=== PATIENT | female | born 1995 | race Caucasian/White ===

== ENCOUNTER 2017-12-10 19:06 | Emergency (ER) | payer OTHER, MEDICAID ==
[2017-12-10] MEDS ORDERED: Ondansetron ODT TAB* 4 MG PO ONE ×2 (19:20→21:27)
--- NOTE | 2017-12-10 19:20 | ED ---
Complex/Multi-Sys Presentation - HPI Summary HPI Summary: This is scribe Ed Holli documenting for attending Roman Tubbs MD. 25 y/o female BIBA c/o intermittent N/V starting at 17:00 lasting to around 18: 30. Pt states the vomiting became almost continuous and produced bile. Pt also c /o ABD pain aggravated when she vomited. Pt is still slightly nauseous. Associated sx: CHEN in the back diffusely. I, Dr. Tubbs, personally performed the services described in this documentation as scribed in my presence and it is both accurate and complete. - History Of Current Complaint Chief Complaint: EDNauseaVomitDiarrh Time Seen by Provider: 12/10/17 19:15 Hx Obtained From: Patient Onset/Duration: Lasting Hours, Resolved Timing: Intermittent, Lasting: Associated Signs And Symptoms: Positive: Headache, Nausea, Vomiting, Abdominal Pain - Allergies/Home Medications Allergies/Adverse Reactions: Allergies Allergy/AdvReac Type Severity Reaction Status Date / Time No Known Allergies Allergy Unverified 12/10/17 19:14 PMH/Surg Hx/FS Hx/Imm Hx Previously Healthy: No Endocrine/Hematology History: Reports: Hx Anemia - TAKING IRON Denies: Hx Diabetes, Hx Thyroid Disease Cardiovascular History: Reports: Other Cardiovascular Problems/Disorders - SLIGHTLY TACHYCARDIA-NORMAL PULSE 100 Denies: Hx Hypercholesterolemia, Hx Hypertension, Hx Peripheral Vascular Disease Respiratory History: Denies: Hx Asthma, Hx Chronic Obstructive Pulmonary Disease (COPD), Other Respiratory Problems/Disorders GI History: Reports: Hx Irritable Bowel Denies: Hx Ulcer, Other GI Disorders - chronic constipation Musculoskeletal History: Reports: Hx Tendonitis - ANKLES Denies: Hx Arthritis, Hx Osteoporosis Sensory History: Denies: Hx Cataracts, Hx Contacts or Glasses, Hx Glaucoma, Hx Hearing Aid Opthamlomology History: Denies: Hx Cataracts, Hx Contacts or Glasses, Hx Glaucoma Neurological History: Reports: Other Neuro Impairments/Disorders - cp Denies: Hx Headaches, Hx Seizures, Hx Transient Ischemic Attacks (TIA) Psychiatric History: Reports: Hx Anxiety - CONTROLLED WITH MED, Hx Depression - CONTROLLED WITH MED - Surgical History Surgery Procedure, Year, and Place: baclofen Pump replacements in 1999, replaced 2006. muscle surgery in 2000-hamstring and gastric. ankle fusion and foot surgery 2011. osteotomies Hx Anesthesia Reactions: No Infectious Disease History: No Infectious Disease History: Denies: Hx Clostridium Difficile, Hx Hepatitis, Hx Human Immunodeficiency Virus (HIV), Hx of Known/Suspected MRSA, Hx Shingles, Hx Tuberculosis, Hx Known/ Suspected VRE, Hx Known/Suspected VRSA, History Other Infectious Disease, Traveled Outside the [place] in Last 30 Days - Family History Known Family History: Positive: Unknown - Social History Alcohol Use: None Substance Use Type: Reports: None Smoking Status (MU): Never Smoked Tobacco Review of Systems Constitutional: Negative Eyes: Negative ENT: Negative Cardiovascular: Negative Respiratory: Negative Positive: Abdominal Pain, Vomiting, Nausea Genitourinary: Negative Musculoskeletal: Negative Skin: Negative Positive: Headache Psychological: Normal All Other Systems Reviewed And Are Negative: Yes Physical Exam - Summary Physical Exam Summary: Appearance: The patient is well-nourished in no acute distress and in no acute pain. Skin: The skin is warm and dry and skin color reflects adequate perfusion. HEENT: The head is normocephalic and atraumatic. The pupils are equal and reactive. The conjunctivae are clear and without drainage. Nares are patent and without drainage. Mouth reveals moist mucous membranes and the throat is without erythema and exudate. The external ears are intact. The ear canals are patent and without drainage. The tympanic membranes are intact. Neck: The neck is supple with full range of motion and non-tender. There are no carotid bruits. There is no neck vein distension. Respiratory: Chest is non-tender. Lungs are clear to auscultation and breath sounds are symmetrical and equal. Cardiovascular: Heart is regular rate and rhythm. There is no murmur or rub auscultated. There is no peripheral edema and pulses are symmetrical and equal. Abdomen: The abdomen is soft and non-tender. There are normal bowel sounds heard in all four quadrants and there is no organomegaly palpated. Musculoskeletal: There is no back tenderness noted. Extremities are non-tender with full range of motion. There is good capillary refill. There is no peripheral edema or calf tenderness elicited. Neurological: Patient is alert and oriented to person, place and time. The patient has symmetrical motor strength in all four extremities. Cranial nerves are grossly intact. Deep tendon reflexes are symmetrical and equal in all four extremities. Psychiatric: The patient has an appropriate affect and does not exhibit any anxiety or depression. Triage Information Reviewed: Yes Vital Signs On Initial Exam: Initial Vitals Temp Pulse Resp BP Pulse Ox 97.1 F 114 20 123/88 100 12/10/17 19:11 12/10/17 19:11 12/10/17 19:11 12/10/17 19:11 12/10/17 19:11 Vital Signs Reviewed: Yes Diagnostics - Vital Signs Vital Signs Temp Pulse Resp BP Pulse Ox 12/10/17 19:11 97.1 F 114 20 123/88 100 - Laboratory Lab Statement: Any lab studies that have been ordered have been reviewed, and results considered in the medical decision making process. Re-Evaluation - Re-Evaluation 1 Re-Evaluation Time: 21:25 Change: Improved Comment: Reassess pt; pt is feeling better with PO intake Complex Multi-Symp Course/Dx Course Of Treatment: Ms. Phillips presented to the emergency department with multiple episodes of vomiting without abdominal pain or diarrhea. She attributed to something she had just eaten. She was feeling a bit better when she arrived although still nauseated and was given by mouth Zofran. She improved and was able to take food and drink and discharged in stable condition. - Diagnoses Provider Diagnoses: Vomiting Discharge - Sign-Out/Discharge Documenting (check all that apply): Patient Departure - Discharge Plan Condition: Stable Disposition: HOME Patient Education Materials: Acute Nausea and Vomiting (ED) Referrals: Shekhar Hart MD [Primary Care Provider] - 4 Days (PLEASE F/U IN 3-5 DAYs) Additional Instructions: PLEASE RETURN TO THE ED FOR WORSENING OR RETURNING SYMPTOMS - Billing Disposition and Condition Condition: STABLE Disposition: Home
[2017-12-10 21:53] VITALS: BP 135/95
[2017-12-10] MEDS ORDERED: Ondansetron ODT TAB* 4 MG ONE (22:19)
== END 2017-12-10 21:52 | disposition home or self-care (01) ==
LOC: ED 19:06
DX: R11.10 Vomiting, unspecified (principal); D64.9 Anemia, unspecified
CPT/HCPCS: 99283; A9270-GY

== ENCOUNTER 2017-12-18 20:17 | Emergency (ER) | payer OTHER, MEDICAID ==
[2017-12-18 20:45] VITALS: BP 116/71
[2017-12-18] MEDS ORDERED: Sulfamethox/Trimethoprim DS 800/160* TAB PO ONE (21:48)
[2017-12-18] MEDS ORDERED: Phenazopyridine TAB* 100 MG PO ONE (21:49)
--- NOTE | 2017-12-18 21:54 | UC ---
Complaint Female HPI - HPI Summary HPI Summary: 22 yo female c/o dysuria, hesitation with urination, bladder discomfort progressively worse for the last couple days. Took an over the counter urine infection test - it was positive. no fever / chills, but feels as little unwell. Possibly concomitant vaginal yeast infection, used over the counter cream, but didn't really help. No current gi sx; however, last week was seen in ED for acute n/v d/t food poisoning. These sx resolved. No Diarrhea. No rash. Hx uti's in the past; this feels just like a uti. Is sexually active but not recently. - History Of Current Complaint Chief Complaint: UCGU Stated Complaint: UTI Time Seen by Provider: 12/18/17 21:36 Hx Obtained From: Patient Hx Last Menstrual Period: [id number] Pain Intensity: 5 - Allergies/Home Medications Allergies/Adverse Reactions: Allergies Allergy/AdvReac Type Severity Reaction Status Date / Time No Known Allergies Allergy Unverified 12/18/17 20:46 Home Medications: Home Medications Ibuprofen TAB* [Advil TAB*] 200 mg PO Q6H PRN 12/18/17 [History Confirmed ] Linaclotide (NF) [Linzess (NF)] 290 mcg PO DAILY 12/18/17 [History Confirmed ] Mirabegron (NF) [Myrbetriq (NF)] 25 mg PO DAILY 12/18/17 [History Confirmed ] Omeprazole CAP* [Prilosec CAP* 20 MG] 40 mg PO DAILY 12/18/17 [History Confirmed 12/18/17] PMH/Surg Hx/FS Hx/Imm Hx Previously Healthy: Yes - see hpi / pmh - Surgical History Surgical History: Yes Surgery Procedure, Year, and Place: baclofen Pump replacements in 1999, replaced 2006. muscle surgery in 2000-hamstring and gastric. ankle fusion and foot surgery 2011. osteotomies - Family History Known Family History: Positive: Unknown - Social History Alcohol Use: Rare Substance Use Type: None Smoking Status (MU): Never Smoked Tobacco - Immunization History Most Recent Influenza Vaccination: fall 2012 Most Recent Tetanus Shot: within last 10 yrs Most Recent Pneumonia Vaccination: never recieved Review of Systems Constitutional: Negative Skin: Negative Eyes: Negative ENT: Negative Respiratory: Negative Cardiovascular: Negative Gastrointestinal: Other - see hpi Genitourinary: Other - see hpi Motor: Other - no new change Neurovascular: Other - no new change Musculoskeletal: Other: - no new change Neurological: Other - no new change Psychological: Negative Is Patient Immunocompromised?: No All Other Systems Reviewed And Are Negative: Yes Physical Exam Triage Information Reviewed: Yes Appearance: Well-Appearing, Well-Nourished Vital Signs: Initial Vital Signs Temp 98.2 F 12/18/17 20:39 Pulse 97 12/18/17 20:39 Resp 14 12/18/17 20:39 BP 116/71 12/18/17 20:39 Pulse Ox 100 12/18/17 20:39 Vital Signs Reviewed: Yes Eye Exam: Normal - grossly normal ENT Exam: Normal - mmm. grossly normal. Neck exam: Normal Neck: Positive: Supple Respiratory Exam: Normal Respiratory: Positive: Chest non-tender, Lungs clear, Normal breath sounds, No respiratory distress Cardiovascular Exam: Normal Cardiovascular: Positive: RRR Abdominal Exam: Other - soft, nondistended. No cvat. + subj tender over bladder. No r/g. Musculoskeletal Exam: Other - in wheelchair. Neurological Exam: Other - full neurologic exam not performed. No report of worse or new issues. Psychological Exam: Normal - conversing easily and appropriately. Complaint Female Dx - Course Course Of Treatment: Reviewed urine dip with Emily. Patel. S/sx c/w recent uti, will send cx. Will start abx, she will call pcp on Thursday to arrange f/u. Will seek medical attention for worse or new problems. Aware of the importance of close f/u pcp. Questions as posed answered to the best of my ability. Seems pleased with coa / tx plan. - Differential Dx/Diagnosis Provider Diagnoses: Dysuria. Possible uti Discharge - Sign-Out/Discharge Documenting (check all that apply): Patient Departure - Discharge Plan Condition: Stable Disposition: HOME Prescriptions: Fluconazole [Diflucan 150 MG (NF)] 150 mg PO DAILY #2 tab Sulfamethox/Trimethoprim DS* [Bactrim DS 800/160 TAB*] 1 tab PO BID #13 tab Patient Education Materials: Urinary Tract Infection in Women (ED), Yeast Infection (ED) Referrals: Shekhar Hart MD [Primary Care Provider] - Additional Instructions: Your symptoms are consistent with a urinary tract infection. Urine culture has been sent. Please call your doctor on Thursday to schedule a follow up appointment for this week. - Billing Disposition and Condition Condition: STABLE Disposition: Home
== END 2017-12-18 22:15 | disposition home or self-care (01) ==
LOC: UCEAST 20:17
DX: R30.0 Dysuria (principal)
CPT/HCPCS: 81003; 84702; 87086; 99212; A9270-GY; G0463

== ENCOUNTER 2020-03-31 21:08 | Inpatient (IN) ==
[2020-03-31] MEDS ORDERED: Ondansetron 4 mg VIAL 2 MG/ML 2 ml VIAL IV ONE (22:09)
[2020-03-31] MEDS ORDERED: NS 0.9% 1000 ml BAG 1,000 ML IV ONE (22:09)
[2020-03-31 22:26] LABS: ALT 16 U/L (7-52); Albumin/Globulin Ratio 1.6 (1-3); Alkaline Phosphatase 105 U/L (34-104); BUN/Creatinine Ratio 21.9 (8-20); Blood Urea Nitrogen 14 mg/dL (6-24); C Reactive Protein 6.99 mg/L (<8.01); CO2 Carbon Dioxide 20 mmol/L (22-32); Calcium 10.2 mg/dL (8.6-10.3); Chloride 106 mmol/L (101-111); EGFR African American 135.7 (>60); EGFR Non-African American 112.2 (>60); Globulin 3.1 g/dL (2-4); Glucose 114 mg/dL (70-100); Lipase 13 U/L (11.0-82.0); Sodium 135 mmol/L (135-145); Total Protein 8.1 g/dL (6.4-8.9)
[2020-03-31 22:32] LABS: HCG Pregnancy < 0.60 mIU/mL
[2020-03-31 22:40] LABS: Anion Gap 9 mmol/L (2-11)
[2020-03-31] MEDS: Morphine 4 MG/ML VIAL (1 ml) IV ONE (22:53)
[2020-03-31] MEDS ORDERED: Metoclopramide 5 MG/ML VIAL (10 mg) IV SLOW PU ONE (23:54)
[2020-04-01] MEDS ORDERED: Iohexol 300 (CONTRAST) 10 ML SDV IV ONE (00:25)
[2020-04-01 01:38] LABS: ABS Monocytes 0.3 10^3/ul (0-0.8); ABS Neutrophils 10.8 10^3/ul (1.5-7.7); Eosinophil % 0.1 %; Hematocrit 41 % (35-47); Hemoglobin 13.5 g/dL (12.0-16.0); Lymphocyte % 8.4 %; Mean Corpuscular HGB Conc 33 g/dL (31-36); Mean Corpuscular Hemoglobin 30 pg (27-31); Mean Corpuscular Volume 90 fL (80-97); Mean Platelet Volume 7.2 fL (7.4-10.4); Nucleated Red Blood Cells % 0.1; Platelet Count 283 10^3/uL (150-450); Red Blood Count 4.53 10^6 /uL (3.70-4.87); Red Cell Distribution Width 14 % (10-15); Urine Appearance Cloudy; Urine Bilirubin Negative (Negative); Urine Blood 3+ (Negative); Urine Color Yellow; Urine Glucose Negative (Negative); Urine Ketones 2+ (Negative); Urine Nitrite Negative (Negative); Urine Protein Negative (Negative); Urine Specific Gravity 1.017 (1.010-1.030); Urine Urobilinogen Negative (Negative); White Blood Count 12.2 10^3/uL (3.5-10.8)
[2020-04-01 01:45] LABS: Urine Bacteria 1+ (Absent); Urine Red Blood Cell 1+(3-5/hpf) (Absent); Urine Squamous Epithelial Cell Present (Absent); Urine White Blood Cell Absent (Absent)
[2020-04-01] MEDS ORDERED: NS 0.9% 1000 ml BAG 1,000 ML IV ONE ×3 (02:32→16:14)
[2020-04-01] MEDS ORDERED: Ondansetron 4 mg VIAL 2 MG/ML 2 ml VIAL IV PRN (03:50)
[2020-04-01] MEDS ORDERED: NS 0.9% 1000 ml BAG 1,000 ML IV SCH ×2 (04:00→07:45)
[2020-04-01] MEDS ORDERED: Bupivacaine 0.25% SDV 30 ML ONE (08:54)
[2020-04-01] MEDS ORDERED: fentaNYL 100 mcg/2 ml 50 MCG/ML VIAL ONE ×3 (09:08→11:17)
[2020-04-01] MEDS ORDERED: Rocuronium 50 mg VIAL 10 mg/ml 5 ml VIAL (50 mg) ONE ×2 (09:09→09:19)
[2020-04-01] MEDS ORDERED: Midazolam 5 mg/5 ml VIAL 1 mg/ml 5 ml VIAL (5 mg) ONE (09:09)
[2020-04-01] MEDS ORDERED: Succinylcholine 200 mg VIAL 20 mg/ml 10 ml VIAL (200 mg) ONE (09:17)
[2020-04-01] MEDS ORDERED: Dexamethasone IV 4 MG/ML VIAL 1 ml VIAL ONE (09:17)
[2020-04-01] MEDS ORDERED: Propofol 10 MG/ML 20 ML BTL ONE ×2 (09:17→12:11)
[2020-04-01] MEDS ORDERED: DiMENhydriNATE IV 50 mg/ml 1 ml VIAL ONE (09:17)
[2020-04-01] MEDS ORDERED: Ondansetron 4 mg VIAL 2 MG/ML 2 ml VIAL ONE (09:17)
[2020-04-01] MEDS ORDERED: Lidocaine 2% PF 5 ML VIAL ONE (09:17)
[2020-04-01] MEDS ORDERED: Acetaminophen IV 1 GM/100ML 100 ML ONE (09:19)
[2020-04-01] MEDS ORDERED: HYDROmorphone 1 MG/1 ML SYRINGE ONE ×3 (11:58→12:46)
[2020-04-01] MEDS ORDERED: Naloxone 0.4 mg VIAL 0.4 mg/ml 1 ml VIAL IV PRN (12:38)
[2020-04-01] MEDS ORDERED: DiMENhydriNATE IV 50 mg/ml 1 ml VIAL IV PUSH PRN (12:38)
[2020-04-01] MEDS ORDERED: Morphine PCA ADULT 5 MG/ML 30 ML PCA SCH (12:45)
[2020-04-01] MEDS: HYDROmorphone 1 MG/1 ML SYRINGE IV PRN ×5 (12:45→13:15)
[2020-04-01] MEDS ORDERED: Morphine 4 MG/ML VIAL (1 ml) ONE (13:29)
[2020-04-01] MEDS: Morphine 4 MG/ML VIAL (1 ml) IV ONE (13:30)
[2020-04-01] MEDS: NS 0.9% 1000 ml BAG 1,000 ML IV SCH ×2 (15:05→22:42)
[2020-04-01] MEDS: Pantoprazole VIAL 40 MG VIAL IV SCH (18:13)
[2020-04-02] MEDS ORDERED: diPHENhydraMINE IV 50 MG/ML 1 ml VIAL (BENADRYL) IV PRN (00:08)
[2020-04-02] MEDS: NS 0.9% 1000 ml BAG 1,000 ML IV SCH (05:30)
[2020-04-02] MEDS: Pantoprazole VIAL 40 MG VIAL IV SCH (08:04)
[2020-04-02 08:30] LABS: ABS Lymphocytes 1.9 10^3/ul (1.0-4.8); Eosinophil % 0.4 %; Hematocrit 31 % (35-47); Hemoglobin 10.8 g/dL (12.0-16.0); Lymphocyte % 17.2 %; Mean Corpuscular HGB Conc 35 g/dL (31-36); Mean Corpuscular Hemoglobin 31 pg (27-31); Mean Corpuscular Volume 90 fL (80-97); Mean Platelet Volume 7.1 fL (7.4-10.4); Platelet Count 229 10^3/uL (150-450); Red Cell Distribution Width 14 % (10-15); White Blood Count 10.9 10^3/uL (3.5-10.8)
[2020-04-02 08:38] LABS: BUN/Creatinine Ratio 11.4 (8-20); Calcium 8.1 mg/dL (8.6-10.3); EGFR African American 209.1 (>60); EGFR Non-African American 172.8 (>60); Magnesium 1.6 mg/dL (1.9-2.7); Potassium 3.7 mmol/L (3.5-5.0)
[2020-04-02] MEDS ORDERED: Magnesium Sulfate 2 gm BAG 2 GM/50 ML BAG IVPB ONE (10:59)
[2020-04-02] MEDS ORDERED: NS 0.9% 1000 ml BAG 1,000 ML IV SCH (11:02)
[2020-04-02] MEDS ORDERED: CALCIUM GLUCONATE 1GM/50ML NS 1 GM/50 ML BAG IV ONE (11:30)
[2020-04-02] MEDS: DULoxetine DR 60 mg CAP PO SCH (12:03)
[2020-04-02] MEDS: Heparin 5000 UNITS/ML 1 mL VIAL SUBCUT SCH ×2 (13:26→21:23)
[2020-04-02 17:00] LABS: Activated Partial Thrombo Time 30.6 seconds (26.0-38.0); INR 1.42 (0.82-1.09)
[2020-04-02 18:21] LABS: TSH Ultra Thyroid Stim Horm 6.13 mcIU/mL (0.34-5.60)
[2020-04-02 18:23] LABS: Free T4 0.96 ng/dL (0.61-1.12)
[2020-04-03] MEDS: Heparin 5000 UNITS/ML 1 mL VIAL SUBCUT SCH ×3 (06:25→21:19)
[2020-04-03] MEDS: DULoxetine DR 60 mg CAP PO SCH (08:48)
[2020-04-03] MEDS: Pantoprazole VIAL 40 MG VIAL IV SCH (08:49)
[2020-04-03 09:48] LABS: ABS Eosinophils 0.3 10^3/ul (0-0.6); ABS Lymphocytes 2.6 10^3/ul (1.0-4.8); ABS Monocytes 0.8 10^3/ul (0-0.8); ABS Neutrophils 7.1 10^3/ul (1.5-7.7); Eosinophil % 2.3 %; Hematocrit 32 % (35-47); Lymphocyte % 23.7 %; Mean Corpuscular HGB Conc 34 g/dL (31-36); Mean Corpuscular Hemoglobin 31 pg (27-31); Mean Corpuscular Volume 90 fL (80-97); Mean Platelet Volume 7.1 fL (7.4-10.4); Platelet Count 253 10^3/uL (150-450); Red Blood Count 3.58 10^6 /uL (3.70-4.87); Red Cell Distribution Width 14 % (10-15); White Blood Count 10.8 10^3/uL (3.5-10.8)
[2020-04-03 10:04] LABS: BUN/Creatinine Ratio 11.4 (8-20); Calcium 8.5 mg/dL (8.6-10.3); EGFR African American 209.1 (>60); EGFR Non-African American 172.8 (>60); Magnesium 1.7 mg/dL (1.9-2.7); Potassium 3.5 mmol/L (3.5-5.0)
[2020-04-03] MEDS ORDERED: Magnesium Sulfate 2 gm BAG 2 GM/50 ML BAG IVPB ONE (13:39)
[2020-04-03] MEDS ORDERED: Calcium Carb (TUMS) 500 mg CHEW TAB PO PRN (13:39)
[2020-04-03] MEDS ORDERED: Al Hydrox/Mg Hydrox/Simet LIQ 30 ML UDC PO PRN (22:21)
[2020-04-04] MEDS ORDERED: NS 0.9% 1000 ml BAG 1,000 ML IV SCH (05:00)
[2020-04-04] MEDS: Heparin 5000 UNITS/ML 1 mL VIAL SUBCUT SCH ×3 (06:05→22:26)
[2020-04-04] MEDS: DULoxetine DR 60 mg CAP PO SCH (09:10)
[2020-04-04] MEDS: Pantoprazole VIAL 40 MG VIAL IV SCH (09:10)
[2020-04-04 11:35] LABS: BUN/Creatinine Ratio 12.5 (8-20); Calcium 8.6 mg/dL (8.6-10.3); EGFR African American 233.5 (>60); EGFR Non-African American 192.9 (>60); Potassium 3.3 mmol/L (3.5-5.0)
[2020-04-04] MEDS ORDERED: oxyCODONE/Acetamin 5/325 mg TAB PO PRN (12:54)
[2020-04-04] MEDS ORDERED: Morphine 2 MG/ML SYRINGE IV PRN (12:56)
[2020-04-04] MEDS: KCL 20 MEQ/100 ML IVPREMIX 20 MEQ/100 ML BAG IV SCH ×3 (16:31→23:31)
[2020-04-04 19:36] LABS: Magnesium 1.9 mg/dL (1.9-2.7)
[2020-04-04] MEDS ORDERED: KCL 20 MEQ/100 ML IVPREMIX 20 MEQ/100 ML BAG IV ONE (22:30)
[2020-04-05] MEDS: Heparin 5000 UNITS/ML 1 mL VIAL SUBCUT SCH ×3 (05:10→22:18)
[2020-04-05 05:35] LABS: ABS Eosinophils 0.2 10^3/ul (0-0.6); ABS Lymphocytes 2.3 10^3/ul (1.0-4.8); ABS Monocytes 0.5 10^3/ul (0-0.8); ABS Neutrophils 3.2 10^3/ul (1.5-7.7); Eosinophil % 3.8 %; Hematocrit 30 % (35-47); Hemoglobin 10.3 g/dL (12.0-16.0); Lymphocyte % 36.6 %; Mean Corpuscular HGB Conc 34 g/dL (31-36); Mean Corpuscular Hemoglobin 31 pg (27-31); Mean Corpuscular Volume 90 fL (80-97); Mean Platelet Volume 7.3 fL (7.4-10.4); Nucleated Red Blood Cells % 0.1; Platelet Count 244 10^3/uL (150-450); Red Blood Count 3.38 10^6 /uL (3.70-4.87); Red Cell Distribution Width 14 % (10-15); White Blood Count 6.4 10^3/uL (3.5-10.8)
[2020-04-05] MEDS: DULoxetine DR 60 mg CAP PO SCH (09:28)
[2020-04-05] MEDS: Pantoprazole VIAL 40 MG VIAL IV SCH (10:12)
[2020-04-05 11:02] LABS: BUN/Creatinine Ratio 9.5 (8-20); Calcium 9.1 mg/dL (8.6-10.3); EGFR African American 220.7 (>60); EGFR Non-African American 182.4 (>60); Potassium 3.8 mmol/L (3.5-5.0)
[2020-04-05 11:06] LABS: ABS Eosinophils 0.3 10^3/ul (0-0.6); ABS Lymphocytes 1.6 10^3/ul (1.0-4.8); ABS Monocytes 0.5 10^3/ul (0-0.8); ABS Neutrophils 4.4 10^3/ul (1.5-7.7); Eosinophil % 4.1 %; Hematocrit 33 % (35-47); Hemoglobin 11.3 g/dL (12.0-16.0); Lymphocyte % 24.3 %; Mean Corpuscular HGB Conc 34 g/dL (31-36); Mean Corpuscular Hemoglobin 31 pg (27-31); Mean Corpuscular Volume 90 fL (80-97); Mean Platelet Volume 7.3 fL (7.4-10.4); Platelet Count 275 10^3/uL (150-450); Red Cell Distribution Width 14 % (10-15); White Blood Count 6.8 10^3/uL (3.5-10.8)
[2020-04-06] MEDS: Heparin 5000 UNITS/ML 1 mL VIAL SUBCUT SCH (05:53)
[2020-04-06 06:15] LABS: ABS Eosinophils 0.3 10^3/ul (0-0.6); ABS Lymphocytes 2.4 10^3/ul (1.0-4.8); ABS Monocytes 0.5 10^3/ul (0-0.8); ABS Neutrophils 3.4 10^3/ul (1.5-7.7); Eosinophil % 4.4 %; Hematocrit 33 % (35-47); Hemoglobin 11.1 g/dL (12.0-16.0); Lymphocyte % 36.7 %; Mean Corpuscular HGB Conc 34 g/dL (31-36); Mean Corpuscular Hemoglobin 30 pg (27-31); Mean Corpuscular Volume 89 fL (80-97); Mean Platelet Volume 6.9 fL (7.4-10.4); Platelet Count 292 10^3/uL (150-450); Red Blood Count 3.71 10^6 /uL (3.70-4.87); Red Cell Distribution Width 14 % (10-15); White Blood Count 6.7 10^3/uL (3.5-10.8)
[2020-04-06 07:12] LABS: Calcium 9.1 mg/dL (8.6-10.3); Potassium 3.8 mmol/L (3.5-5.0)
[2020-04-06 07:17] LABS: BUN/Creatinine Ratio 14.6 (8-20); EGFR African American 189.2 (>60); EGFR Non-African American 156.3 (>60)
[2020-04-06] MEDS: Pantoprazole VIAL 40 MG VIAL IV SCH (08:47)
[2020-04-06] MEDS: DULoxetine DR 60 mg CAP PO SCH (08:47)
[2020-04-06 11:15] VITALS: BP 123/80
== END 2020-04-06 11:32 | disposition swing bed (61) | DRG 330 ==
LOC: ED 21:08 → MED 04-01 03:50 → SSU 04-01 14:00
PROVIDERS: ADMIT Hospitalist; ATTEND Internal Medicine

== ENCOUNTER 2020-04-06 11:11 | Inpatient (IN) ==
[2020-04-06] MEDS ORDERED: Polyethylene Glycol 3350 17 GM PACKET PO ONE (11:50)
[2020-04-06] MEDS ORDERED: Al Hydrox/Mg Hydrox/Simet LIQ 30 ML UDC PO PRN (11:52)
[2020-04-06] MEDS ORDERED: oxyCODONE/Acetamin 5/325 mg TAB PO PRN (11:52)
[2020-04-06] MEDS ORDERED: Ondansetron ODT 4 mg TAB 4 MG TAB SL PRN (11:53)
[2020-04-07] MEDS: BACLOFEN INTRATHEC SCH (09:43)
[2020-04-07] MEDS: DULoxetine DR 60 mg CAP PO SCH (09:45)
[2020-04-07] MEDS: Polyethylene Glycol 3350 17 GM PACKET PO PRN (10:29)
[2020-04-08] MEDS: BACLOFEN INTRATHEC SCH (09:03)
[2020-04-08] MEDS: DULoxetine DR 60 mg CAP PO SCH (09:07)
[2020-04-09] MEDS: BACLOFEN INTRATHEC SCH (07:45)
[2020-04-09] MEDS: DULoxetine DR 60 mg CAP PO SCH (07:50)
[2020-04-09] MEDS: Polyethylene Glycol 3350 17 GM PACKET PO PRN (10:29)
[2020-04-09] MEDS ORDERED: Linaclotide 290 mcg CAP (NF) PO SCH (13:00)
[2020-04-09] MEDS ORDERED: CMCS:LINACLOTIDE 72 MCG CAP (NF) PO SCH (14:00)
[2020-04-09] MEDS ORDERED: Sodium Phosphate ADULT ENEMA 133 ML BTL PR PRN (16:20)
[2020-04-10] MEDS: BACLOFEN INTRATHEC SCH (07:47)
[2020-04-10 07:53] VITALS: BP 111/61
[2020-04-10] MEDS: DULoxetine DR 60 mg CAP PO SCH (08:11)
[2020-04-10] MEDS ORDERED: Polyethylene Glycol 3350 17 GM PACKET PO SCH (09:00)
[2020-04-10] MEDS ORDERED: LINACLOTIDE 72 MCG CAP (NF) PO SCH (11:00)
== END 2020-04-10 08:34 | DRG 247 ==
LOC: SSU 11:32
PROVIDERS: ADMIT Internal Medicine; ATTEND Internal Medicine

== ENCOUNTER 2020-04-10 07:32 | Inpatient (IN) ==
[2020-04-10] MEDS ORDERED: Senna TAB 8.6 mg TAB PO PRN (12:13)
[2020-04-10] MEDS ORDERED: Sodium Phosphate ADULT ENEMA 133 ML BTL PR PRN (21:04)
[2020-04-11 06:55] LABS: ABS Basophils 0.1 10^3/ul (0-0.2); ABS Eosinophils 0.4 10^3/ul (0-0.6); ABS Monocytes 0.6 10^3/ul (0-0.8); ABS Neutrophils 4.9 10^3/ul (1.5-7.7); Eosinophil % 4.7 %; Hematocrit 37 % (35-47); Hemoglobin 12.4 g/dL (12.0-16.0); Lymphocyte % 33.1 %; Mean Corpuscular HGB Conc 34 g/dL (31-36); Mean Corpuscular Hemoglobin 30 pg (27-31); Mean Corpuscular Volume 89 fL (80-97); Mean Platelet Volume 6.8 fL (7.4-10.4); Platelet Count 409 10^3/uL (150-450); Red Blood Count 4.13 10^6 /uL (3.70-4.87); Red Cell Distribution Width 14 % (10-15)
[2020-04-11 07:14] LABS: Albumin 3.8 g/dL (3.2-5.2); Albumin/Globulin Ratio 1.2 (1-3); BUN/Creatinine Ratio 30.4 (8-20); Calcium 9.4 mg/dL (8.6-10.3); EGFR African American 158.3 (>60); EGFR Non-African American 130.9 (>60); Globulin 3.2 g/dL (2-4); Potassium 4.3 mmol/L (3.5-5.0); Total Bilirubin 0.2 mg/dL (0.2-1.0)
[2020-04-11] MEDS: CMC: LINACLOTIDE 72 MCG CAP (NF) PO SCH (09:23)
[2020-04-11] MEDS: DULoxetine DR 60 mg CAP PO SCH (09:24)
[2020-04-12] MEDS: DULoxetine DR 60 mg CAP PO SCH (08:48)
[2020-04-13] MEDS: DULoxetine DR 60 mg CAP PO SCH (08:08)
[2020-04-13] MEDS: CMC: LINACLOTIDE 72 MCG CAP (NF) PO SCH (08:09)
[2020-04-13] MEDS: CMC: Ketorolac 10 mg TAB (NF) PO PRN ×2 (15:34→22:47)
[2020-04-13 16:27] LABS: ABS Basophils 0.1 10^3/ul (0-0.2); ABS Eosinophils 0.3 10^3/ul (0-0.6); ABS Lymphocytes 2.4 10^3/ul (1.0-4.8); ABS Monocytes 0.7 10^3/ul (0-0.8); ABS Neutrophils 10.4 10^3/ul (1.5-7.7); Eosinophil % 2.4 %; Hematocrit 36 % (35-47); Hemoglobin 11.9 g/dL (12.0-16.0); Lymphocyte % 17.5 %; Mean Corpuscular HGB Conc 34 g/dL (31-36); Mean Corpuscular Hemoglobin 30 pg (27-31); Mean Corpuscular Volume 89 fL (80-97); Mean Platelet Volume 6.5 fL (7.4-10.4); Platelet Count 470 10^3/uL (150-450); Red Blood Count 4.01 10^6 /uL (3.70-4.87); Red Cell Distribution Width 14 % (10-15); White Blood Count 13.9 10^3/uL (3.5-10.8)
[2020-04-13] MEDS ORDERED: Iohexol 300 (CONTRAST) 10 ML SDV IV ONE (19:06)
[2020-04-14] MEDS: DULoxetine DR 60 mg CAP PO SCH (09:24)
[2020-04-14] MEDS: CMC: Ketorolac 10 mg TAB (NF) PO PRN (09:26)
[2020-04-14 11:51] LABS: ABS Eosinophils 0.5 10^3/ul (0-0.6); ABS Lymphocytes 2.1 10^3/ul (1.0-4.8); ABS Monocytes 0.7 10^3/ul (0-0.8); ABS Neutrophils 8.4 10^3/ul (1.5-7.7); Eosinophil % 4.1 %; Hematocrit 36 % (35-47); Lymphocyte % 17.8 %; Mean Corpuscular HGB Conc 34 g/dL (31-36); Mean Corpuscular Hemoglobin 30 pg (27-31); Mean Corpuscular Volume 89 fL (80-97); Mean Platelet Volume 6.7 fL (7.4-10.4); Platelet Count 443 10^3/uL (150-450); Red Blood Count 4.03 10^6 /uL (3.70-4.87); Red Cell Distribution Width 14 % (10-15); White Blood Count 11.6 10^3/uL (3.5-10.8)
[2020-04-14 12:08] LABS: Albumin/Globulin Ratio 1.3 (1-3); BUN/Creatinine Ratio 33.3 (8-20); Calcium 9.5 mg/dL (8.6-10.3); EGFR African American 176.4 (>60); EGFR Non-African American 145.8 (>60); Potassium 3.6 mmol/L (3.5-5.0); Total Bilirubin 0.3 mg/dL (0.2-1.0)
[2020-04-14] MEDS: D5W NS 0.9% 20Meq KCL 1000 ml 1,000 ML IV SCH (19:35)
[2020-04-15] MEDS: DULoxetine DR 60 mg CAP PO SCH (09:52)
[2020-04-15 11:13] LABS: ABS Eosinophils 0.6 10^3/ul (0-0.6); ABS Lymphocytes 2.6 10^3/ul (1.0-4.8); ABS Monocytes 0.5 10^3/ul (0-0.8); ABS Neutrophils 4.4 10^3/ul (1.5-7.7); Eosinophil % 7.1 %; Hematocrit 34 % (35-47); Hemoglobin 11.5 g/dL (12.0-16.0); Lymphocyte % 31.9 %; Mean Corpuscular HGB Conc 34 g/dL (31-36); Mean Corpuscular Hemoglobin 30 pg (27-31); Mean Corpuscular Volume 89 fL (80-97); Mean Platelet Volume 6.6 fL (7.4-10.4); Platelet Count 460 10^3/uL (150-450); Red Blood Count 3.79 10^6 /uL (3.70-4.87); Red Cell Distribution Width 14 % (10-15); White Blood Count 8.1 10^3/uL (3.5-10.8)
[2020-04-15 11:34] LABS: BUN/Creatinine Ratio 15.3 (8-20); Calcium 9.2 mg/dL (8.6-10.3); EGFR African American 149.1 (>60); EGFR Non-African American 123.2 (>60)
[2020-04-15] MEDS: D5W NS 0.9% 20Meq KCL 1000 ml 1,000 ML IV SCH (11:40)
[2020-04-16] MEDS: DULoxetine DR 60 mg CAP PO SCH (08:50)
[2020-04-17] MEDS: DULoxetine DR 60 mg CAP PO SCH (08:45)
[2020-04-18] MEDS: DULoxetine DR 60 mg CAP PO SCH (09:44)
[2020-04-18 11:04] LABS: ABS Eosinophils 0.5 10^3/ul (0-0.6); ABS Lymphocytes 2.6 10^3/ul (1.0-4.8); ABS Monocytes 0.4 10^3/ul (0-0.8); ABS Neutrophils 4.6 10^3/ul (1.5-7.7); Hematocrit 37 % (35-47); Hemoglobin 12.6 g/dL (12.0-16.0); Lymphocyte % 32.2 %; Mean Corpuscular HGB Conc 34 g/dL (31-36); Mean Corpuscular Hemoglobin 30 pg (27-31); Mean Corpuscular Volume 88 fL (80-97); Mean Platelet Volume 6.7 fL (7.4-10.4); Platelet Count 512 10^3/uL (150-450); Red Blood Count 4.23 10^6 /uL (3.70-4.87); Red Cell Distribution Width 14 % (10-15); White Blood Count 8.1 10^3/uL (3.5-10.8)
[2020-04-18 13:01] LABS: Albumin 4.2 g/dL (3.2-5.2); Calcium 9.5 mg/dL (8.6-10.3); Potassium 4.1 mmol/L (3.5-5.0); Total Bilirubin 0.4 mg/dL (0.2-1.0)
[2020-04-18 13:07] LABS: Albumin/Globulin Ratio 1.4 (1-3); BUN/Creatinine Ratio 27.5 (8-20); EGFR African American 176.4 (>60); EGFR Non-African American 145.8 (>60); Globulin 3.1 g/dL (2-4); Total Protein 7.3 g/dL (6.4-8.9)
[2020-04-18] MEDS ORDERED: Albuterol HFA INHALER 8 gm MDI INH PRN (17:08)
[2020-04-19] MEDS: DULoxetine DR 60 mg CAP PO SCH (09:21)
[2020-04-20] MEDS: DULoxetine DR 60 mg CAP PO SCH (09:51)
[2020-04-20 10:58] VITALS: BP 141/82
[2020-04-21] MEDS ORDERED: Omeprazole 20 mg CAP (NF) PO SCH (06:00)
== END 2020-04-20 11:00 | disposition home health service (06) | DRG 58 ==
LOC: PMRU 10:55
PROVIDERS: ADMIT Physical Medicine & Rehabilitation; ATTEND Physical Medicine & Rehabilitation